=== PATIENT | female | born 1985 | race Caucasian/White ===

== ENCOUNTER 2024-01-19 18:10 | Emergency (ER) | payer OTHER ==
[~2024-01-19] VITALS: Ht 157.5 cm; Wt 49.6 kg
[2024-01-19 18:36] VITALS: BP_SYST 11; BP_SYST 111; BP_DIAS 77; PULSE 75; RESP 16; TEMP 98.1; O2SAT 97
[2024-01-19] MEDS ORDERED: MUPI2CRE22 TP (20:12)
[2024-01-19] MEDS ORDERED: DOCO1CRE TP (20:12)
[2024-01-19] MEDS ORDERED: PRED20TA5 PO (20:12)
[2024-01-19 20:21] VITALS: BP 111/77; PULSE 75; RESP 16; TEMP 98.1; O2SAT 97
== END 2024-01-19 20:21 | disposition home or self-care (01) ==
LOC: MED 18:10
DX: L30.8 Other specified dermatitis (principal); Z79.899 Other long term (current) drug therapy
CPT/HCPCS: 99283